=== PATIENT | female | born 1950 | race Caucasian/White ===

== ENCOUNTER 2021-07-03 08:00 | Outpatient (CLI) | payer MEDICARE | END 2021-07-03 23:59 | LOC: LAB 08:00 | PROVIDERS: ATTEND Physician Assistant Medical | DX: R06.09 Other forms of dyspnea (principal); R05.9 Cough, unspecified; Z20.822 Contact with and (suspected) exposure to COVID-19 | CPT/HCPCS: 87275; 87276 ==

== ENCOUNTER 2021-07-03 08:00 | Outpatient (CLI) | payer MEDICARE ==
--- NOTE | 2021-07-03 14:30 | XRAY Report ---
PROCEDURE: Chest 2 View X-Ray INDICATIONS: COUGH TECHNIQUE: 2 view(s) of the chest. COMPARISON: None. FINDINGS: Surgical changes and devices: Bilateral shoulder arthroplasties Lungs: Lungs are clear. Pleura: No pleural effusions or pneumothorax. Mediastinum: Mediastinal contours are normal. Heart size is normal. Bones and chest wall: No suspicious bony abnormalities. Soft tissues appear unremarkable. IMPRESSION: No acute disease. Reviewed by: Benji Loomis MD on 07/03/2021 2:29 PM PST Approved by: Benji Loomis MD on 07/03/2021 2:29 PM PST Station ID: [id number]
== END 2021-07-03 23:59 | disposition home or self-care (01) ==
LOC: DI.S 08:00
PROVIDERS: ATTEND Physician Assistant Medical
DX: R05.9 Cough, unspecified (principal); R06.09 Other forms of dyspnea; Z20.822 Contact with and (suspected) exposure to COVID-19
CPT/HCPCS: 71046; 87275; 87276; U0004

== ENCOUNTER 2021-10-09 13:37 | Outpatient (CLI) | payer MEDICARE ==
--- NOTE | 2021-10-09 14:35 | XRAY Report ---
PROCEDURE: Hip w/Pelvis 1V LT INDICATIONS: LEFT HIP PAIN/FALL TECHNIQUE: AP pelvis with AP and lateral views of the left hip. COMPARISON: None. FINDINGS: Bones: Postsurgical changes are seen from bilateral hip arthroplasties. Hardware components are seen in expected positions. No signs of loosening or perihardware fracture. Questionable cortical irregul arity is seen to the left of the pubic symphysis. Could represent a nondisplaced fracture. Mild heter otopic ossification adjacent to the right greater trochanter. Degenerative changes are seen in the in cluded spine. Soft tissues: The visualized bowel gas pattern is normal. No suspicious soft tissue calcifications. IMPRESSION: 1.Possible subtle nondisplaced fracture at the left pubic bone adjacent to the pubic symphysis. Corre lation with point tenderness and exam findings. CT or MRI could be obtained for confirmation if indic ated clinically. 2.Bilateral hip arthroplasties are in expected positions without signs of loosening or failure. Reviewed by: Colin Parada MD on 10/09/2021 2:34 PM PST Approved by: Colin Parada MD on 10/09/2021 2:34 PM PST Station ID: [id number]
== END 2021-10-09 23:59 | disposition home or self-care (01) ==
LOC: DI.S 13:37
PROVIDERS: ATTEND Family Medicine
DX: M25.552 Pain in left hip (principal); Z96.643 Presence of artificial hip joint, bilateral

== ENCOUNTER 2024-03-06 08:10 | Outpatient (CLI) | payer MEDICARE ==
--- NOTE | 2024-03-06 16:04 | DEXA Report ---
PROCEDURE: Dexa Spine and/or Hip INDICATIONS: OSTEOPOROSIS. Bilateral hip arthroplasties TECHNIQUE: Dual energy x-ray absorptiometry (DXA) was performed on a [employer]. Regions measur ed are the AP Spine, femoral neck, and if needed forearm. COMPARISON: None FINDINGS: Lumbar Spine: Bone Mineral Density: 0.953 g/cm/cm,T score: -1.9. Left Forearm: Bone Mineral Density: 0.717 g/cm/cm, T score: -1.8. (T score greater or equal to -1.0: NORMAL) (T score from -1.1 to -2.4: OSTEOPENIA) (T score less than or equal to -2.5 to: OSTEOPOROSIS) Impression: By WHO criteria, this patient has low bone density (osteopenia). Patients with diagnosis of osteoporosis or osteopenia should have regular bone mineral density assess ment. For those eligible for Medicare, routine testing is allowed once every 2 years. Testing frequ ency can be increased for patients who have rapidly progressing disease or for those who are receivin g medical therapy to restore bone mass. Reviewed by: Tim Villegas MD on 03/06/2024 4:02 PM PDT Approved by: Tim Villegas MD on 03/06/2024 4:02 PM PDT Station ID: [id number]
== END 2024-03-06 08:11 | disposition home or self-care (01) ==
LOC: DI 08:10
PROVIDERS: ATTEND Internal Medicine
DX: M85.89 Other specified disorders of bone density and structure, multiple sites (principal)